=== PATIENT | female | born 1940 | race Caucasian/White ===

== ENCOUNTER → 2016-03-07 | Outpatient (CLI) | payer BC ==
[2016-03-07 14:42] LABS: CHOLESTEROL 124.02 mg/dL (0-200); Direct HDL 45 mg/dL (>40); TRIGLYCERIDES 122 mg/dL (<150)
[2016-03-07 14:45] LABS: ANION GAP 9 (5-19); BLOOD UREA NITROGEN 16 mg/dL (7-20); CALCIUM 9.4 mg/dL (8.4-10.2); CARBON DIOXIDE 30 mmol/L (22-30); CHLORIDE 102 mmol/L (98-107); CREATININE RESULT 1.33 mg/dL (0.52-1.25); GLUCOSE 103 mg/dL (75-110); POTASSIUM 4.3 mmol/L (3.6-5.0)
[2016-03-07 14:53] LABS: DIRECT LDL 59 mg/dL (<100)
== END ==
LOC: OD 13:29
PROVIDERS: ATTEND Internal Medicine Cardiovascular Disease
DX: E78.4 Other hyperlipidemia (principal)
CPT/HCPCS: 36415; 80048; 80061

== ENCOUNTER → 2016-09-09 | Outpatient (CLI) | payer BC ==
[2016-09-09 14:14] LABS: ANION GAP 10 (5-19); BLOOD UREA NITROGEN 19 mg/dL (7-20); CALCIUM 9.2 mg/dL (8.4-10.2); CARBON DIOXIDE 26 mmol/L (22-30); CHLORIDE 105 mmol/L (98-107); CHOLESTEROL 129.42 mg/dL (0-200); CREATININE RESULT 1.23 mg/dL (0.52-1.25); Direct HDL 45 mg/dL (>40); GLUCOSE 114 mg/dL (75-110); POTASSIUM 4.4 mmol/L (3.6-5.0); SODIUM 140.6 mmol/L (137-145); TRIGLYCERIDES 127 mg/dL (<150)
[2016-09-09 14:25] LABS: DIRECT LDL 58 mg/dL (<100)
== END ==
LOC: OD 13:09
PROVIDERS: ATTEND Internal Medicine Cardiovascular Disease
DX: I70.1 Atherosclerosis of renal artery (principal); I25.10 Atherosclerotic heart disease of native coronary artery without angina pectoris
CPT/HCPCS: 36415; 80048; 80061

== ENCOUNTER 2017-01-18 12:50 | Inpatient (IN) | payer MEDICARE ==
[2017-01-18] MEDS ORDERED: HYDROMORPHONE HCL INJ/PF 2 MG/ML AMPULE IV ONE ×2 (13:21→14:56)
--- NOTE | 2017-01-18 13:44 | ER Document Report ---
ED General - General Chief Complaint: Fall Injury Stated Complaint: HIP PAIN Time Seen by Provider: 01/18/17 13:18 Notes: 76-year-old female with multiple chronic medical issues including cardiac on Plavix presents with a fall from standing on the way back from the commode about 2 hours ago resulting in painful right hip, impact on the right side of her body, pain worse with movement and not able to bear weight. She also states that her ankle twisted, this made her fall. She has minimal ankle pain. No numbness or tingling chest pain shortness of breath headache at impact, nausea vomiting or neck pain. Brought in by EMS. Has neurologic symptoms in the left or right lower extremity. TRAVEL OUTSIDE OF THE [place] IN LAST 30 DAYS: No - Related Data Allergies/Adverse Reactions: epinephrine [Epinephrine] Allergy (Verified 05/11/15 18:37) Home Medications: Current Home Medications Aspirin [Aspirin EC] 81 mg PO DAILY 01/18/17 [History] Bupropion HCl [Bupropion Xl] 150 mg PO DAILY 01/18/17 [History] Escitalopram Oxalate [Lexapro] 20 mg PO DAILY 01/18/17 [History] Lisinopril [Prinivil 10 mg Tablet] 10 mg PO QPM 01/18/17 [History] Nifedipine [Nifedipine ER] 30 mg PO QPM 01/18/17 [History] Rosuvastatin Calcium [Crestor 10 mg Tablet] 10 mg PO QHS 01/18/17 [History] Trazodone HCl [Desyrel 50 mg Tablet] 50 mg PO HSP PRN 01/18/17 [History] Ubidecarenone [Coq-10] 100 mg PO DAILY 01/18/17 [History] Past Medical History - Social History Smoking Status: Former Smoker Family History: Reviewed & Not Pertinent - Past Medical History Cardiac Medical History: Reports: Hx Hypercholesterolemia, Hx Hypertension Psychiatric Medical History: Reports: Hx Depression, Hx Post Traumatic Stress Disorder Past Surgical History: Reports: Hx Breast Surgery - left masectomy, Hx Kidney ( Renal Surgery) - renal stent Review of Systems - Review of Systems Notes: REVIEW OF SYSTEMS GEN: Denies fever, chills, weight loss ENT: Denies sore throat, nasal discharge, ear pain EYES: Denies blurry vision, eye pain, discharge CV: Denies chest pain, palpitations, edema RESP: Denies cough, shortness of breath, wheezing GI: Denies abdominal pain, nausea, vomiting, diarrhea MSK: Right hip pain, SKIN: Denies rash, skin lesions LYMPH: Denies swollen glands/lymph nodes NEURO: Denies headache, focal weakness or numbness, dizziness PSYCH: Denies depression, suicidal or homicidal ideation PHYSICAL EXAMINATION General: No acute distress, well-nourished Head: Atraumatic, normocephalic ENT: Mouth normal, oropharynx moist, no exudates or tonsillar enlargement Eyes: Conjunctiva normal, pupils equal, lids normal Neck: No JVD, supple, no guarding CVS: Normal rate, regular rhythm, no murmurs Resp: No resp distress, equal and normal breath sounds bilaterally GI: Nondistended, soft, no tenderness to palpation, no rebound or guarding Ext: Right hip is held in hyper adduction, painful range of motion tenderness in the anterior femur proximally with some ecchymosis. Compartments are soft throughout, no knee or ankle tenderness. T Back: No CVA or midline TTP Skin: No rash, warm Lymphatic: No lymphadeopathy noted Neuro: Awake, alert. Face symmetric. GCS 15. Physical Exam - Vital signs Vitals: Temp Pulse Resp BP Pulse Ox 100.3 F 68 19 196/86 H 93 01/18/17 13:06 01/18/17 13:06 01/18/17 13:06 01/18/17 13:06 01/18/17 13:06 Course - Re-evaluation Re-evalutation: 01/18/17 13:44 Mechanical fall leading to right hip pain differential diagnosis includes contusion versus fracture of hip, less likely pelvis fracture, no evidence of head neck or truncal injury. Pain control, femur and pelvis films will be done. 01/18/17 14:45 X-ray shows right-sided hip fracture. Neurologically intact. Lengthy discussion with patient about admitting here, Dr. Welch has accepted by phone but the patient is not interested in having Dr. Welch perform her operation. She was educated on the patella and the fact that a transfer would result in cost to her for transportation. She and her were frustrated by this. I verified with Dr. Hill, the hospitalist, that if he admitted the patient she would need to be consulted on by Dr. Welch and not have her choice of orthopedists. is calling her primary private doctor to find out more options. In the meantime I ordered CBC, basic metabolic panel chest x-ray and EKG for preoperative workup. 01/18/17 15:27 After speaking with her primary the patient is accepted Dr. Welch to fix her hip. Admitted to Dr. HILL. - Vital Signs Vital signs: Temp Pulse Resp BP Pulse Ox 100.3 F 68 19 196/86 H 93 01/18/17 13:06 01/18/17 13:06 01/18/17 13:06 01/18/17 13:06 01/18/17 13:06 - Laboratory Result Diagrams: 01/18/17 14:47 01/18/17 14:47 Laboratory results interpreted by me: 01/18/17 01/18/17 14:47 14:47 Plt Count 126 L Seg Neuts % (Manual) 92 H Band Neutrophils % 1 L Lymphocytes % (Manual) 1 L Abs Neuts (Manual) 8.9 H Abs Lymphs (Manual) 0.2 L Potassium 3.4 L Chloride 108 H Est GFR (Non-Af Amer) 53 L Glucose 139 H - Diagnostic Test Radiology reviewed: Image reviewed, Reports reviewed - EKG Interpretation by Me EKG shows normal: Sinus rhythm Rate: Normal Rhythm: NSR - No ischemic change Discharge - Discharge Clinical Impression: Fracture of hip, right, closed Qualifiers: Encounter type: initial encounter Qualified Code(s): S72.001A - Fracture of unspecified part of neck of right femur, initial encounter for closed fracture Condition: Good Disposition: ADMITTED INPATIENT Admitting Provider: Hospitalist Unit Admitted: Medical Floor
--- NOTE | 2017-01-18 14:36 | RADIOLOGY REPORT (SQ) ---
EXAM DESCRIPTION: PELVIS AP COMPLETED DATE/TIME: 01/18/2017 2:15 pm REASON FOR STUDY: fall old hi pfx COMPARISON: None. NUMBER OF VIEWS: One view TECHNIQUE: AP Pelvis LIMITATIONS: None. FINDINGS: MINERALIZATION: Normal. HIPS: Suboptimal visualization of the right femoral neck. Cannot exclude underlying fracture. Unrem arkable appearance of the left hip. Mild degenerative changes. PELVIS AND SACRUM: No acute fracture or dislocation. No worrisome bone lesions. PUBIS AND ISCHIUM: No acute fracture. LOWER LUMBAR SPINE: No significant findings as visualized. SOFT TISSUES: No findings. OTHER: No other significant finding. IMPRESSION: SUBOPTIMAL VISUALIZATION OF THE RIGHT FEMORAL NECK. CANNOT EXCLUDE FRACTURE. NO OTHER SIGNIFICANT FINDINGS. TECHNICAL DOCUMENTATION: JOB ID: [id number] [employer]- All Rights Reserved
--- NOTE | 2017-01-18 14:37 | RADIOLOGY REPORT (SQ) ---
EXAM DESCRIPTION: FEMUR RIGHT COMPLETED DATE/TIME: 01/18/2017 2:15 pm REASON FOR STUDY: ttp proox COMPARISON: None. NUMBER OF VIEWS: Two views. TECHNIQUE: Two radiographic images acquired of the right femur to include hip and knee in at least o ne projection. LIMITATIONS: None. FINDINGS: MINERALIZATION: Normal. BONES: Suboptimal visualization of the right femoral neck. Suspect fracture. There is also suggesti on of focal radiolucency and cannot exclude underlying bone lesion. SOFT TISSUES: No obvious swelling or foreign body. OTHER: No other significant finding. IMPRESSION: SUSPECT FRACTURE OF THE RIGHT FEMORAL NECK. AREA OF RADIOLUCENCY COULD BE ARTIFACT VERS US UNDERLYING BONE LESION. TECHNICAL DOCUMENTATION: JOB ID: [id number] [employer]- All Rights Reserved
[2017-01-18 14:55] LABS: HEMOGLOBIN 13.9 g/dL (12.0-15.5); HGB HCT DIFFERENCE 1.7; MEAN CORPUSCULAR HEMOGLOBIN 28.7 pg (27.0-33.4); MEAN CORPUSCULAR HGB CONC 34.7 g/dL (32.0-36.0); MEAN CORPUSCULAR VOLUME 83 fl (80-97); RED BLOOD COUNT 4.85 10^6/uL (3.72-5.28); RED CELL DISTRIBUTION WIDTH 13.5 % (11.5-14.0); WHITE BLOOD COUNT 9.6 10^3/uL (4.0-10.5)
--- NOTE | 2017-01-18 15:12 | RADIOLOGY REPORT (SQ) ---
EXAM DESCRIPTION: CHEST SINGLE VIEW COMPLETED DATE/TIME: 01/18/2017 2:59 pm REASON FOR STUDY: pre-op COMPARISON: 05/15/2015 EXAM PARAMETERS: NUMBER OF VIEWS: One view. TECHNIQUE: Single frontal radiographic view of the chest acquired. RADIATION DOSE: NA LIMITATIONS: None. FINDINGS: LUNGS AND PLEURA: No opacities, masses or pneumothorax. No pleural effusion. MEDIASTINUM AND HILAR STRUCTURES: No masses. Contour normal. HEART AND VASCULAR STRUCTURES: Heart normal in size. Normal vasculature. BONES: No acute findings. HARDWARE: None in the chest. OTHER: No other significant finding. IMPRESSION: NO ACUTE RADIOGRAPHIC FINDING IN THE CHEST. TECHNICAL DOCUMENTATION: JOB ID: [id number] [employer]- All Rights Reserved
[2017-01-18 15:17] LABS: ANION GAP 6 (5-19); BLOOD UREA NITROGEN 13 mg/dL (7-20); CARBON DIOXIDE 27 mmol/L (22-30); CHLORIDE 108 mmol/L (98-107); CREATININE RESULT 1.01 mg/dL (0.52-1.25); GLUCOSE 139 mg/dL (75-110); POTASSIUM 3.4 mmol/L (3.6-5.0); SODIUM 140.8 mmol/L (137-145)
[2017-01-18 15:23] LABS: BAND NEUTROPHILS % (MANUAL) 1 % (3-5); BASOPHILS % (MANUAL) 0 % (0-2); EOSINOPHILS % (MANUAL) 0 % (0-6); LYMPHOCYTES % (MANUAL) 1 % (13-45); TOTAL CELLS COUNTED 100
[2017-01-18 15:24] LABS: RBC MORPHOLOGY COMMENT NORMO-CYTIC/CHROMIC
[2017-01-18] MEDS ORDERED: DEXTROSE 50%-WATER 25 GM/50 ML DISP.SYRIN IV PRN ×2 (16:32)
[2017-01-18] MEDS ORDERED: DEXTROSE 40% GEL 15 GM TUBE PO PRN ×2 (16:32)
[2017-01-18] MEDS ORDERED: IPRATROPIUM/ALBUTEROL 0.5-2.5 MG/3 ML AMPUL NEB PRN (16:32)
[2017-01-18] MEDS ORDERED: ACETAMINOPHEN 325 MG TABLET PO PRN (16:32)
[2017-01-18] MEDS ORDERED: ONDANSETRON 4 MG TAB.RAPDIS PO PRN (16:32)
[2017-01-18] MEDS ORDERED: ONDANSETRON HCL INJ/PF 4 MG/2 ML SDV IV PRN (16:32)
[2017-01-18] MEDS ORDERED: NORMAL SALINE 1000 ML 1,000 ML IV PRN (16:32)
[2017-01-18] MEDS ORDERED: GLUCAGON,HUMAN RECOMB 1 MG INJ SUBCUT PRN (16:32)
[2017-01-18] MEDS ORDERED: TRAZODONE HCL 50 MG TABLET PO PRN (16:41)
[2017-01-18] MEDS ORDERED: MORPHINE SULFATE 10 MG/ML INJ IV PRN (16:42)
--- NOTE | 2017-01-18 16:49 | PDOC H&P ---
History of Present Illness Admission Date/PCP: 01/18/17 15:32 EDILBERTO REED MD Patient complains of: Right hip pain History of Present Illness: HENRRY HITCHCOCK is a 76 year old female who has a history of coronary disease who had a slip and fall in her house yesterday and fell and hit her right side. Patient had complaints of right hip pain at that time got herself up and walked to bed and woke up this morning with worsening pain. She was found to have a small fracture in her right femoral neck. The patient reports that she did not have any loss of consciousness. Denied having any chest pain or palpitations. She did not have any head trauma. She had no loss of consciousness. She reports that the floor was somewhat wet and slick where she slipped and fell. The patient denies any focal weakness or paresthesias. Past Medical History Cardiac Medical History: Reports: Coronary Artery Disease - History of RCA stent , Hyperlipidema, Hypertension, Peripheral Vascular Disease - History of renal artery stent placement Pulmonary Medical History: Reports: None EENT Medical History: Reports: None Neurological Medical History: Reports: None Endocrine Medical History: Reports: None Renal/ Medical History: Reports: Other - History of renal artery stenosis requiring stent placement Malignancy Medical History: Reports: Breast Cancer GI Medical History: Reports: None Skin Medical History: Reports: None Psychiatric Medical History: Reports: Depression, Post Traumatic Stress Disorder Traumatic Medical History: Reports: None Hematology: Reports: None Infectious Medical History: Reports: None Past Surgical History Past Surgical History: Reports: Cardiac Catheterization - RCA stent placement, Hysterectomy, Mastectomy - Left mastectomy for breast cancer Social History Information Source: Patient Lives with: Spouse/Significant other Smoking Status: Never Smoker Frequency of Alcohol Use: None Hx Recreational Drug Use: No Drugs: None Hx Prescription Drug Abuse: No - Advance Directive Resuscitation Status: Full Code Surrogate healthcare decision maker:: Family History Family History: Mother at age 90 from complications of sepsis. Father at age 70 from a cerebral aneurysm. Daughter had an aneurysm and from that also. Parental Family History Reviewed: Yes Children Family History Reviewed: Yes Sibling(s) Family History Reviewed.: No Medication/Allergy Home Medications: Aspirin [Aspirin EC] 81 mg PO DAILY 01/18/17 Bupropion HCl [Bupropion Xl] 150 mg PO DAILY 01/18/17 Escitalopram Oxalate [Lexapro] 20 mg PO DAILY 01/18/17 Lisinopril [Prinivil 10 mg Tablet] 10 mg PO QPM 01/18/17 Nifedipine [Nifedipine ER] 30 mg PO QPM 01/18/17 Rosuvastatin Calcium [Crestor 10 mg Tablet] 10 mg PO QHS 01/18/17 Trazodone HCl [Desyrel 50 mg Tablet] 50 mg PO HSP PRN 01/18/17 Ubidecarenone [Coq-10] 100 mg PO DAILY 01/18/17 Allergies/Adverse Reactions: epinephrine [Epinephrine] Allergy (Verified 05/11/15 18:37) Review of Systems Constitutional: ABSENT: chills, fever(s), headache(s), weight gain, weight loss Eyes: ABSENT: visual disturbances Ears: ABSENT: hearing changes Cardiovascular: ABSENT: chest pain, dyspnea on exertion, edema, orthropnea, palpitations Respiratory: ABSENT: cough, hemoptysis Gastrointestinal: ABSENT: abdominal pain, constipation, diarrhea, hematemesis, hematochezia, nausea, vomiting Genitourinary: ABSENT: dysuria, hematuria Musculoskeletal: PRESENT: other - Right hip pain after her fall. Integumentary: ABSENT: rash, wounds Neurological: ABSENT: abnormal gait, abnormal speech, confusion, dizziness, focal weakness, syncope Psychiatric: ABSENT: anxiety, depression Endocrine: ABSENT: cold intolerance, heat intolerance, polydipsia, polyuria Hematologic/Lymphatic: ABSENT: easy bleeding, easy bruising Physical Exam Vital Signs: Temp Pulse Resp BP Pulse Ox 100.3 F 68 19 196/86 H 93 01/18/17 13:06 01/18/17 13:06 01/18/17 13:06 01/18/17 13:06 01/18/17 13:06 General appearance: PRESENT: no acute distress, obese Head exam: PRESENT: atraumatic, normocephalic Eye exam: PRESENT: conjunctiva pink, EOMI, PERRLA. ABSENT: scleral icterus Ear exam: PRESENT: normal external ear exam Mouth exam: PRESENT: moist, tongue midline Neck exam: ABSENT: carotid bruit, JVD, lymphadenopathy, thyromegaly Respiratory exam: PRESENT: clear to auscultation gregorio. ABSENT: rales, rhonchi, wheezes Cardiovascular exam: PRESENT: RRR. ABSENT: diastolic murmur, rubs, systolic murmur Pulses: PRESENT: normal dorsalis pedis pul Vascular exam: PRESENT: normal capillary refill GI/Abdominal exam: PRESENT: normal bowel sounds, soft. ABSENT: distended, guarding, mass, organolmegaly, rebound, tenderness Rectal exam: PRESENT: deferred Extremities exam: PRESENT: other - Right hip is externally rotated. ABSENT: calf tenderness, clubbing, pedal edema Neurological exam: PRESENT: alert, awake, oriented to person, oriented to place , oriented to time, oriented to situation, CN II-XII grossly intact. ABSENT: motor sensory deficit Psychiatric exam: PRESENT: appropriate affect Skin exam: PRESENT: dry, intact, warm. ABSENT: cyanosis, rash Results Impressions: Pelvis X-Ray 01/18/17 13:18 IMPRESSION: SUBOPTIMAL VISUALIZATION OF THE RIGHT FEMORAL NECK. CANNOT EXCLUDE FRACTURE. NO OTHER SIGNIFICANT FINDINGS. Femur X-Ray 01/18/17 13:21 IMPRESSION: SUSPECT FRACTURE OF THE RIGHT FEMORAL NECK. AREA OF RADIOLUCENCY COULD BE ARTIFACT VERSUS UNDERLYING BONE LESION. Chest X-Ray 01/18/17 14:19 IMPRESSION: NO ACUTE RADIOGRAPHIC FINDING IN THE CHEST. Assessment & Plan - Diagnosis (1) Fracture of hip, right, closed Qualifiers: Encounter type: initial encounter Qualified Code(s): S72.001A - Fracture of unspecified part of neck of right femur, initial encounter for closed fracture Is this a current diagnosis for this admission?: Yes Plan: Patient is at an acceptable risk for surgical repair if that is deemed appropriate by orthopedic surgery. Will consult Dr. Welch for his opinion. She has been on Plavix and aspirin which we will hold until postoperative. (2) Coronary artery disease Is this a current diagnosis for this admission?: Yes Plan: Patient has a history of coronary disease with a stent placed in her right coronary artery years ago. The patient has been doing well has been able to ambulate without any type of chest pain or shortness of breath prior to her fall. She is at an acceptable risk for surgical repair of her hip fracture. (3) Hypertension Is this a current diagnosis for this admission?: Yes Plan: We will continue with the nifedipine and lisinopril. (4) Hyperlipidemia Is this a current diagnosis for this admission?: Yes Plan: Continue with Crestor. (5) Posttraumatic stress disorder Is this a current diagnosis for this admission?: Yes Plan: Continue with Lexapro and Wellbutrin. (6) Breast cancer Is this a current diagnosis for this admission?: Yes Plan: Patient had breast cancer over 15 years ago. (7) Peripheral vascular disease Is this a current diagnosis for this admission?: Yes Plan: Patient has a history of having a stent placed in her renal artery. - Time Time Spent: 50 to 70 Minutes - Inpatient Certification Medical Necessity: Need for Pain Control, Need for Surgery
--- NOTE | 2017-01-18 16:59 | PDOC CONSULTATION ---
Consultation Consult Date: 01/18/17 Consult reason:: Right hip fracture History of Present Illness Admission Date/PCP: 01/18/17 15:32 EDILBERTO REED MD History of Present Illness: The patient is a 76-year-old white female who fell injured her right hip was able to walk to bed but then had difficulty getting up out of bed later. She presented to emergency room with a displaced right femoral neck fracture. Orthopedics is consulted for fracture management. Past Medical History Cardiac Medical History: Reports: Coronary Artery Disease - History of RCA stent , Hyperlipidema, Hypertension, Peripheral Vascular Disease - History of renal artery stent placement Pulmonary Medical History: Reports: None EENT Medical History: Reports: None Neurological Medical History: Reports: None Endocrine Medical History: Reports: None Renal/ Medical History: Reports: Other - History of renal artery stenosis requiring stent placement Malignancy Medical History: Reports: Breast Cancer GI Medical History: Reports: None Skin Medical History: Reports: None Psychiatric Medical History: Reports: Depression, Post Traumatic Stress Disorder Traumatic Medical History: Reports: None Hematology: Reports: None Infectious Medical History: Reports: None Past Surgical History Past Surgical History: Reports: Cardiac Catheterization - RCA stent placement, Hysterectomy, Mastectomy - Left mastectomy for breast cancer Social History Lives with: Spouse/Significant other Smoking Status: Never Smoker Frequency of Alcohol Use: None Hx Recreational Drug Use: No Drugs: None Hx Prescription Drug Abuse: No - Advance Directive Resuscitation Status: Full Code Family History Family History: Reviewed & Not Pertinent Parental Family History Reviewed: No Children Family History Reviewed: No Sibling(s) Family History Reviewed.: No Medication/Allergy Home Medications: Aspirin [Aspirin EC] 81 mg PO DAILY 01/18/17 Bupropion HCl [Bupropion Xl] 150 mg PO DAILY 01/18/17 Escitalopram Oxalate [Lexapro] 20 mg PO DAILY 01/18/17 Lisinopril [Prinivil 10 mg Tablet] 10 mg PO QPM 01/18/17 Nifedipine [Nifedipine ER] 30 mg PO QPM 01/18/17 Rosuvastatin Calcium [Crestor 10 mg Tablet] 10 mg PO QHS 01/18/17 Trazodone HCl [Desyrel 50 mg Tablet] 50 mg PO HSP PRN 01/18/17 Ubidecarenone [Coq-10] 100 mg PO DAILY 01/18/17 Allergies/Adverse Reactions: epinephrine [Epinephrine] Allergy (Verified 05/11/15 18:37) Review of Systems All systems: as per PMH Physical Exam Vital Signs: Temp Pulse Resp BP Pulse Ox 37.9 C 68 19 196/86 H 93 01/18/17 13:06 01/18/17 13:06 01/18/17 13:06 01/18/17 13:06 01/18/17 13:06 Intake & Output 01/17/17 01/18/17 01/19/17 06:59 06:59 06:59 Weight 78.7 kg General appearance: PRESENT: no acute distress Head exam: PRESENT: normocephalic Respiratory exam: PRESENT: unlabored Cardiovascular exam: PRESENT: RRR Pulses: PRESENT: +1 pedal pulses bilateral Vascular exam: PRESENT: normal capillary refill GI/Abdominal exam: PRESENT: soft Rectal exam: PRESENT: deferred Extremities exam: PRESENT: other - Right lower extremity shortened and externally rotated. Distal neurovascular examination is intact. Neurological exam: PRESENT: alert, awake, oriented to person, oriented to place , oriented to time, oriented to situation. ABSENT: motor sensory deficit Psychiatric exam: PRESENT: appropriate affect, normal mood. ABSENT: homicidal ideation, suicidal ideation Skin exam: PRESENT: dry, intact, warm. ABSENT: cyanosis, rash Results Impressions: Pelvis X-Ray 01/18/17 13:18 IMPRESSION: SUBOPTIMAL VISUALIZATION OF THE RIGHT FEMORAL NECK. CANNOT EXCLUDE FRACTURE. NO OTHER SIGNIFICANT FINDINGS. Femur X-Ray 01/18/17 13:21 IMPRESSION: SUSPECT FRACTURE OF THE RIGHT FEMORAL NECK. AREA OF RADIOLUCENCY COULD BE ARTIFACT VERSUS UNDERLYING BONE LESION. Chest X-Ray 01/18/17 14:19 IMPRESSION: NO ACUTE RADIOGRAPHIC FINDING IN THE CHEST. Status: Imported from PACS Assessment & Plan - Diagnosis (1) Fracture of femoral neck, right, closed Is this a current diagnosis for this admission?: Yes Plan: 76-year-old with a displaced right femoral neck fracture would be best served with a right proximal femoral hemiarthroplasty. This is a procedure that will take about 30 minutes and will incur approximately 100 cc of blood loss. Patient will be ambulatory and weightbearing as tolerated basis postoperatively. The risks and benefits of the surgery have been discussed with the patient. They include but are not limited to infection, bleeding, neurovascular injury, blood clots, leg length inequality, dislocation. - Time Time Spent: 50 to 70 Minutes Anticipated discharge: Home with Homehealth Within: within 48 hours
[2017-01-18] MEDS ORDERED: NIFEDIPINE 30 MG TAB.ER.24 PO SCH (18:00)
[2017-01-18] MEDS ORDERED: LISINOPRIL 10 MG TABLET PO SCH (18:00)
--- NOTE | 2017-01-18 20:28 | EKG REPORT ---
SEVERITY:- ABNORMAL ECG - SINUS RHYTHM PROBABLE LVH WITH SECONDARY REPOL ABNRM : Confirmed by: Mala Chun 18-Jan-2017 20:28:13
[2017-01-18] MEDS: OXYCODONE-ACETAMINOPHEN 5-325 MG TABLET PO PRN (21:38)
[2017-01-18] MEDS: ATORVASTATIN CALCIUM 20 MG TABLET PO SCH (21:38)
[2017-01-18] MEDS: BUPROPION HCL 75 MG TABLET PO SCH (21:38)
[2017-01-18] MEDS ORDERED: FAMOTIDINE 20 MG TABLET PO SCH (22:00)
[2017-01-18] MEDS ORDERED: ATORVASTATIN CALCIUM 10 MG TABLET PO SCH (22:00)
[2017-01-19] MEDS: OXYCODONE-ACETAMINOPHEN 5-325 MG TABLET PO PRN (03:11)
[2017-01-19] MEDS ORDERED: TRANEXAMIC ACID INJ/PF 1,000 MG/10 ML SDV IV PRN ×2 (05:00→10:00)
[2017-01-19] MEDS ORDERED: VANCOMYCIN HCL 1,000 MG in DEXTROSE 5%-WATER 250 ML IV SCH (05:00)
[2017-01-19] MEDS ORDERED: THROMBIN (BOVINE) 5000 UNIT EPITAXIS KIT ONE (06:28)
[2017-01-19] MEDS ORDERED: BUPIVACAINE INJ/PF LIPOSOME/PF 266 MG/20 ML SDV ONE (06:28)
[2017-01-19] MEDS ORDERED: THROMBIN (BOVINE) TOPICAL 20000 UNIT VIAL ONE (06:28)
[2017-01-19 06:34] LABS: ABSOLUTE EOSINOPHILS # (AUTO) 0.1 10^3/uL (0.0-0.6); ABSOLUTE LYMPHOCYTES (AUTO) 0.9 10^3/uL (0.5-4.7); ABSOLUTE MONOCYTES (AUTO) 0.7 10^3/uL (0.1-1.4); ABSOLUTE NEUT (AUTO) 6.4 10^3/uL (1.7-8.2); BASOPHILS % (AUTO) 0.5 % (0-2); EOSINOPHILS % (AUTO) 1.4 % (0-6); HEMATOCRIT 36.7 % (36.0-47.0); HEMOGLOBIN 12.7 g/dL (12.0-15.5); HGB HCT DIFFERENCE 1.4; LYMPHOCYTES % (AUTO) 10.9 % (13-45); MEAN CORPUSCULAR HEMOGLOBIN 28.9 pg (27.0-33.4); MEAN CORPUSCULAR HGB CONC 34.5 g/dL (32.0-36.0); MEAN CORPUSCULAR VOLUME 84 fl (80-97); MONOCYTES % (AUTO) 8.8 % (3-13); RED BLOOD COUNT 4.39 10^6/uL (3.72-5.28); RED CELL DISTRIBUTION WIDTH 13.5 % (11.5-14.0); SEGMENTED NEUTROPHILS % (AUTO) 78.4 % (42-78); WHITE BLOOD COUNT 8.2 10^3/uL (4.0-10.5)
[2017-01-19] MEDS ORDERED: TRANEXAMIC ACID INJ/PF 1,000 MG/10 ML SDV IV ONE ×2 (06:37→09:53)
[2017-01-19] MEDS ORDERED: VANCOMYCIN HCL INJ 1000 MG VIAL ONE (06:37)
[2017-01-19] MEDS ORDERED: PROPOFOL INJ 200 MG/20 ML VIAL IV ONE (06:44)
[2017-01-19] MEDS ORDERED: MIDAZOLAM 2 MG/2 ML INJ ONE (06:44)
[2017-01-19] MEDS ORDERED: FENTANYL CITRATE INJ/PF 100 MCG/2 ML AMPUL ONE (06:44)
[2017-01-19] MEDS ORDERED: ACETAMINOPHEN 100 ML IV ONE (06:45)
[2017-01-19] MEDS ORDERED: KETOROLAC TROMETHAMINE 60 MG/2 ML SDV ONE (06:45)
[2017-01-19 06:55] LABS: ANION GAP 11 (5-19); BLOOD UREA NITROGEN 12 mg/dL (7-20); CALCIUM 8.8 mg/dL (8.4-10.2); CARBON DIOXIDE 23 mmol/L (22-30); CHLORIDE 108 mmol/L (98-107); CREATININE RESULT 0.83 mg/dL (0.52-1.25); GLUCOSE 108 mg/dL (75-110); POTASSIUM 3.1 mmol/L (3.6-5.0); SODIUM 141.9 mmol/L (137-145)
[2017-01-19] MEDS ORDERED: HYDROMORPHONE HCL INJ/PF 2 MG/ML AMPULE ONE (07:10)
[2017-01-19] MEDS ORDERED: ONDANSETRON HCL INJ/PF 4 MG/2 ML SDV IV PRN ×2 (07:53→07:57)
[2017-01-19] MEDS ORDERED: MEPERIDINE HCL/PF INJ 25 MG/1 ML DISP.SYRIN IV PRN (07:53)
[2017-01-19] MEDS ORDERED: DIPHENHYDRAMINE HCL 50 MG/ML VIAL IV PRN ×2 (07:53→07:57)
[2017-01-19] MEDS ORDERED: PROMETHAZINE HCL INJ 25 MG/1 ML VIAL IV PRN (07:53)
[2017-01-19] MEDS ORDERED: FENTANYL CITRATE INJ/PF 100 MCG/2 ML AMPUL IV PRN ×3 (07:53)
[2017-01-19] MEDS ORDERED: MORPHINE SULFATE 10 MG/ML INJ IV PRN ×4 (07:53→07:57)
[2017-01-19] MEDS ORDERED: MAG HYDROX/AL HYDROX/SIMETH SUSP 30 ML UDCUP PO PRN (07:57)
[2017-01-19] MEDS ORDERED: ONDANSETRON 4 MG TAB.RAPDIS PO PRN (07:57)
[2017-01-19] MEDS ORDERED: OXYCODONE HCL IR 5 MG TABLET PO PRN (07:57)
[2017-01-19] MEDS ORDERED: RINGERS SOLUTION,LACTATED 1,000 ML IV PRN ×2 (07:57)
[2017-01-19] MEDS ORDERED: ZOLPIDEM TARTRATE 5 MG TABLET PO PRN (07:57)
[2017-01-19] MEDS ORDERED: CARVEDILOL 12.5 MG TABLET PO PRN (07:57)
[2017-01-19] MEDS ORDERED: MORPHINE SULFATE 10 MG/ML INJ IM PRN (07:57)
--- NOTE | 2017-01-19 07:57 | Operative Report ---
Operative Report DATE OF SURGERY: 01/19/17 PREOPERATIVE DIAGNOSIS: Right femoral neck fracture OPERATION: Right proximal femoral hemiarthroplasty SURGEON: STUART MCKEON ANESTHESIA: GA TISSUE REMOVED OR ALTERED: Femoral head to pathology ESTIMATED BLOOD LOSS: 100 PROCEDURE: With the patient in a left lateral decubitus position the right lower extremity hindquarter prepped and draped in a sterile fashion. A curvilinear incision made over the greater trochanter a posterior approach the hip was taken. The femur was retracted anteriorly and underlying femoral neck and head are retrieved using a corkscrew. The femoral head was measured and noted to be 46 millimeters. Attention is now turned to the femur. Access is gained to the femoral canal using a box osteotome to the piriformis fossa. The femur is then prepared using a series of tapered broaches until a number 6 broach is seated. A trial reduction was now performed using a 46 head and standard neck. Leg length was restored and there is excellent anterior posterior stability. A decision was made to proceed with this construct. All trial implants were removed. The final number 6 femoral stem is impacted into the canal. The standard neck is impacted onto the trunnion. Final unipolar head 46 millimeters is impacted onto the neck. The hip was reduced. The wound is copiously irrigated with pulsed lavage. A subsequent closed in layers using Vicryl and albino. A sterile dressing is applied. The patient was returned to the recovery room in satisfactory condition.
[2017-01-19] MEDS ORDERED: POTASSI CL 20 MEQ/50 ML RIDER 20 MEQ/50 ML RTUPB IV ONE (09:15)
[2017-01-19] MEDS: FLUMAZENIL INJ 0.5 MG/5 ML VIAL ONE ×2 (09:27→09:43)
--- NOTE | 2017-01-19 09:31 | RADIOLOGY REPORT (SQ) ---
EXAM DESCRIPTION: PELVIS AP COMPLETED DATE/TIME: 01/19/2017 9:23 am REASON FOR STUDY: Post Op Long Cassette in PACU COMPARISON: 01/18/2017. NUMBER OF VIEWS: One view TECHNIQUE: Digital radiographic images of the pelvis post-procedure LIMITATIONS: None. FINDINGS: BONES: No worrisome or unexpected findings post-procedure. DEVICE: Bi-polar prothesis. Device appears in appropriate location. SOFT TISSUES: No worrisome findings. Expected postoperative soft tissue changes. IMPRESSION: SATISFACTORY POSTOPERATIVE PELVIS. TECHNICAL DOCUMENTATION: JOB ID: [id number] [employer]- All Rights Reserved
[2017-01-19] MEDS ORDERED: (PENDING PHARMACY ID) (Bupropion Hcl [Bupropion Xl] 150 MG) PO SCH (10:00)
[2017-01-19] MEDS ORDERED: (PENDING PHARMACY ID) (Ubidecarenone [Coq-10] 100 MG) PO SCH (10:00)
[2017-01-19] MEDS: NALOXONE HCL INJ/PF 0.4 MG/1 ML SDV ONE ×2 (10:06→10:22)
[2017-01-19] MEDS: OXYCODONE HCL SR 10 MG TABLET PO SCH (13:59)
[2017-01-19] MEDS: ASPIRIN 81 MG TABLET, ENT COATED PO SCH (13:59)
[2017-01-19] MEDS ORDERED: SUCCINYLCHOLINE CHLORIDE INJ 200 MG/10 ML VIAL ONE (14:50)
[2017-01-19] MEDS: PRENATAL VITAMIN W DHA CAPSULE PO SCH (14:50)
[2017-01-19] MEDS: BUPROPION HCL 75 MG TABLET PO SCH (14:51)
[2017-01-19] MEDS: SENNOSIDES/DOCUSATE 8.6-50 MG 1 EACH TABLET PO SCH ×2 (14:51→18:59)
[2017-01-19] MEDS: ESCITALOPRAM OXALATE 10 MG TABLET PO SCH (15:09)
--- NOTE | 2017-01-19 17:17 | PDOC PROGRESS REPORT ---
Subjective Progress Note for:: 01/19/17 Subjective:: Patient reports that she is doing well with minimal pain after surgery. Reason For Visit: RIGHT FEMORAL NECK FRACTURE Physical Exam Vital Signs: Temp Pulse Resp BP Pulse Ox 97.8 F 67 20 119/60 94 01/19/17 14:10 01/19/17 16:34 01/19/17 16:34 01/19/17 14:10 01/19/17 16:34 Intake & Output 01/18/17 01/19/17 01/20/17 06:59 06:59 06:59 Intake Total 1735 2100 Output Total 1375 1300 Balance 360 800 Weight 77.8 kg General appearance: PRESENT: no acute distress Eye exam: PRESENT: conjunctiva pink. ABSENT: scleral icterus Mouth exam: PRESENT: moist, tongue midline Neck exam: ABSENT: JVD Respiratory exam: PRESENT: clear to auscultation gregorio. ABSENT: rales, rhonchi, wheezes Cardiovascular exam: PRESENT: RRR. ABSENT: diastolic murmur, rubs, systolic murmur GI/Abdominal exam: PRESENT: normal bowel sounds, soft. ABSENT: distended, guarding, mass, organolmegaly, rebound, tenderness Extremities exam: ABSENT: calf tenderness, clubbing, pedal edema Neurological exam: PRESENT: alert, awake, oriented to person, oriented to place , oriented to time, oriented to situation, CN II-XII grossly intact. ABSENT: motor sensory deficit Psychiatric exam: PRESENT: appropriate affect Skin exam: PRESENT: dry, intact, warm. ABSENT: cyanosis, rash Results Laboratory Results: 01/19/17 05:45 01/19/17 05:45 01/19/17 01/19/17 05:45 05:45 WBC 8.2 RBC 4.39 Hgb 12.7 Hct 36.7 MCV 84 MCH 28.9 MCHC 34.5 RDW 13.5 Plt Count 125 L Seg Neutrophils % 78.4 H Lymphocytes % 10.9 L Monocytes % 8.8 Eosinophils % 1.4 Basophils % 0.5 Absolute Neutrophils 6.4 Absolute Lymphocytes 0.9 Absolute Monocytes 0.7 Absolute Eosinophils 0.1 Absolute Basophils 0.0 Sodium 141.9 Potassium 3.1 L Chloride 108 H Carbon Dioxide 23 Anion Gap 11 BUN 12 Creatinine 0.83 Est GFR ( Amer) > 60 Est GFR (Non-Af Amer) > 60 Glucose 108 Calcium 8.8 Impressions: Femur X-Ray 01/18/17 13:21 IMPRESSION: SUSPECT FRACTURE OF THE RIGHT FEMORAL NECK. AREA OF RADIOLUCENCY COULD BE ARTIFACT VERSUS UNDERLYING BONE LESION. Chest X-Ray 01/18/17 14:19 IMPRESSION: NO ACUTE RADIOGRAPHIC FINDING IN THE CHEST. Pelvis X-Ray 01/19/17 07:59 IMPRESSION: SATISFACTORY POSTOPERATIVE PELVIS. Assessment & Plan - Diagnosis (1) Fracture of hip, right, closed Qualifiers: Encounter type: initial encounter Qualified Code(s): S72.001A - Fracture of unspecified part of neck of right femur, initial encounter for closed fracture Is this a current diagnosis for this admission?: Yes Plan: She is doing well postoperatively. Will start physical therapy. (2) Coronary artery disease Is this a current diagnosis for this admission?: Yes Plan: We will restart the aspirin and Plavix tomorrow morning. (3) Hypertension Is this a current diagnosis for this admission?: Yes Plan: We will continue with the nifedipine and lisinopril. (4) Hyperlipidemia Is this a current diagnosis for this admission?: Yes Plan: Continue with Crestor. (5) Posttraumatic stress disorder Is this a current diagnosis for this admission?: Yes Plan: Continue with Lexapro and Wellbutrin. (6) Breast cancer Is this a current diagnosis for this admission?: Yes (7) Peripheral vascular disease Is this a current diagnosis for this admission?: Yes Plan: Patient has a history of having a stent placed in her renal artery. - Time Time Spent with patient: 15-24 minutes - Inpatient Certification Medical Necessity: Need Close Monitoring Due to Risk of Patient Decompensation, Need for Pain Control
[2017-01-19] MEDS: ACETAMINOPHEN 100 ML IV SCH (18:29)
[2017-01-19] MEDS ORDERED: VANCOMYCIN HCL 1,000 MG in DEXTROSE 5%-WATER 250 ML IV ONE (20:00)
[2017-01-19] MEDS: NIFEDIPINE 30 MG TAB.ER.24 PO SCH (22:58)
[2017-01-19] MEDS: LISINOPRIL 10 MG TABLET PO SCH (22:58)
[2017-01-19] MEDS: CARVEDILOL 12.5 MG TABLET PO SCH (22:58)
[2017-01-20] MEDS: ATORVASTATIN CALCIUM 20 MG TABLET PO SCH ×2 (00:04→21:32)
[2017-01-20] MEDS: BUPROPION HCL 75 MG TABLET PO SCH ×3 (00:04→21:32)
[2017-01-20] MEDS: ACETAMINOPHEN 100 ML IV SCH ×4 (00:04→21:33)
[2017-01-20] MEDS: OXYCODONE HCL SR 10 MG TABLET PO SCH ×3 (03:46→21:32)
[2017-01-20 06:07] LABS: HEMATOCRIT 31.2 % (36.0-47.0); HEMOGLOBIN 10.7 g/dL (12.0-15.5); HGB HCT DIFFERENCE 0.9; MEAN CORPUSCULAR HEMOGLOBIN 28.5 pg (27.0-33.4); MEAN CORPUSCULAR HGB CONC 34.4 g/dL (32.0-36.0); MEAN CORPUSCULAR VOLUME 83 fl (80-97); RED BLOOD COUNT 3.76 10^6/uL (3.72-5.28); RED CELL DISTRIBUTION WIDTH 13.8 % (11.5-14.0); WHITE BLOOD COUNT 7.1 10^3/uL (4.0-10.5)
[2017-01-20 06:27] LABS: ANION GAP 9 (5-19); BLOOD UREA NITROGEN 12 mg/dL (7-20); CALCIUM 8.3 mg/dL (8.4-10.2); CARBON DIOXIDE 26 mmol/L (22-30); CHLORIDE 107 mmol/L (98-107); CREATININE RESULT 0.89 mg/dL (0.52-1.25); GLUCOSE 102 mg/dL (75-110); POTASSIUM 3.1 mmol/L (3.6-5.0); SODIUM 141.6 mmol/L (137-145)
[2017-01-20] MEDS: LANSOPRAZOLE 30 MG TAB.RAP.DR PO SCH (07:06)
--- NOTE | 2017-01-20 07:47 | PDOC PROGRESS REPORT ---
Subjective Progress Note for:: 01/20/17 Subjective:: I feel like I have been hit by a truck Reason For Visit: RIGHT FEMORAL NECK FRACTURE Physical Exam Vital Signs: Temp Pulse Resp BP Pulse Ox 36.9 C 80 16 160/62 H 93 01/20/17 04:00 01/20/17 04:00 01/20/17 04:00 01/20/17 04:00 01/20/17 04:00 Intake & Output 01/19/17 01/20/17 01/21/17 06:59 06:59 06:59 Intake Total 1735 2700 Output Total 1375 1700 Balance 360 1000 Weight 77.8 kg 82.8 kg General appearance: PRESENT: no acute distress Head exam: PRESENT: normocephalic Respiratory exam: PRESENT: unlabored Cardiovascular exam: PRESENT: RRR Pulses: PRESENT: +1 pedal pulses bilateral Vascular exam: PRESENT: normal capillary refill GI/Abdominal exam: PRESENT: soft Rectal exam: PRESENT: deferred Extremities exam: PRESENT: other - Right hip dressing clean dry and intact. Leg lengths are equal. Distal neurovascular examination is intact. Neurological exam: PRESENT: alert, awake, oriented to person, oriented to place , oriented to time, oriented to situation. ABSENT: motor sensory deficit Psychiatric exam: PRESENT: appropriate affect, normal mood. ABSENT: homicidal ideation, suicidal ideation Skin exam: PRESENT: dry, intact, warm. ABSENT: cyanosis, rash Results Laboratory Results: 01/20/17 05:31 01/20/17 05:31 01/20/17 01/20/17 05:31 05:31 WBC 7.1 RBC 3.76 Hgb 10.7 L Hct 31.2 L MCV 83 MCH 28.5 MCHC 34.4 RDW 13.8 Plt Count 105 L Sodium 141.6 Potassium 3.1 L Chloride 107 Carbon Dioxide 26 Anion Gap 9 BUN 12 Creatinine 0.89 Est GFR ( Amer) > 60 Est GFR (Non-Af Amer) > 60 Glucose 102 Calcium 8.3 L Impressions: Femur X-Ray 01/18/17 13:21 IMPRESSION: SUSPECT FRACTURE OF THE RIGHT FEMORAL NECK. AREA OF RADIOLUCENCY COULD BE ARTIFACT VERSUS UNDERLYING BONE LESION. Chest X-Ray 01/18/17 14:19 IMPRESSION: NO ACUTE RADIOGRAPHIC FINDING IN THE CHEST. Pelvis X-Ray 01/19/17 07:59 IMPRESSION: SATISFACTORY POSTOPERATIVE PELVIS. Status: Imported from PACS Assessment & Plan - Diagnosis (1) Fracture of femoral neck, right, closed Is this a current diagnosis for this admission?: Yes Plan: 76-year-old white female postop day 2 from right hemiarthroplasty for femoral neck fracture. Overall the patient's clinical course has been stable. She is relatively sensitive to narcotic analgesics. She is made limited progress with physical therapy. Anticipate [facility] facility placement when bed is available. - Time Time Spent with patient: 15-24 minutes Anticipated discharge: SNF Within: when bed available
[2017-01-20] MEDS: SENNOSIDES/DOCUSATE 8.6-50 MG 1 EACH TABLET PO SCH ×2 (10:45→17:35)
[2017-01-20] MEDS: ASPIRIN 81 MG TABLET, ENT COATED PO SCH (10:45)
[2017-01-20] MEDS: ESCITALOPRAM OXALATE 10 MG TABLET PO SCH (10:46)
[2017-01-20] MEDS: PRENATAL VITAMIN W DHA CAPSULE PO SCH (10:46)
--- NOTE | 2017-01-20 13:36 | PDOC PROGRESS REPORT ---
Subjective Progress Note for:: 01/20/17 Subjective:: Patient reports that she is doing well with minimal pain after surgery. Reason For Visit: RIGHT FEMORAL NECK FRACTURE Physical Exam Vital Signs: Temp Pulse Resp BP Pulse Ox 98.4 F 69 18 145/64 H 94 01/20/17 08:18 01/20/17 10:13 01/20/17 10:13 01/20/17 08:18 01/20/17 10:13 Intake & Output 01/19/17 01/20/17 01/21/17 06:59 06:59 06:59 Intake Total 1735 3075 Output Total 1375 1700 Balance 360 1375 Weight 77.8 kg 82.8 kg General appearance: PRESENT: no acute distress Eye exam: PRESENT: conjunctiva pink. ABSENT: scleral icterus Mouth exam: PRESENT: moist, tongue midline Neck exam: ABSENT: JVD Respiratory exam: PRESENT: clear to auscultation gregorio. ABSENT: rales, rhonchi, wheezes Cardiovascular exam: PRESENT: RRR. ABSENT: diastolic murmur, rubs, systolic murmur GI/Abdominal exam: PRESENT: normal bowel sounds, soft. ABSENT: distended, guarding, mass, organolmegaly, rebound, tenderness Extremities exam: ABSENT: calf tenderness, clubbing, pedal edema Neurological exam: PRESENT: alert, awake, oriented to person, oriented to place , oriented to time, oriented to situation, CN II-XII grossly intact. ABSENT: motor sensory deficit Psychiatric exam: PRESENT: appropriate affect Skin exam: PRESENT: dry, intact, warm. ABSENT: cyanosis, rash Results Laboratory Results: 01/20/17 05:31 01/20/17 05:31 01/20/17 01/20/17 05:31 05:31 WBC 7.1 RBC 3.76 Hgb 10.7 L Hct 31.2 L MCV 83 MCH 28.5 MCHC 34.4 RDW 13.8 Plt Count 105 L Sodium 141.6 Potassium 3.1 L Chloride 107 Carbon Dioxide 26 Anion Gap 9 BUN 12 Creatinine 0.89 Est GFR ( Amer) > 60 Est GFR (Non-Af Amer) > 60 Glucose 102 Calcium 8.3 L Impressions: Femur X-Ray 01/18/17 13:21 IMPRESSION: SUSPECT FRACTURE OF THE RIGHT FEMORAL NECK. AREA OF RADIOLUCENCY COULD BE ARTIFACT VERSUS UNDERLYING BONE LESION. Chest X-Ray 01/18/17 14:19 IMPRESSION: NO ACUTE RADIOGRAPHIC FINDING IN THE CHEST. Pelvis X-Ray 01/19/17 07:59 IMPRESSION: SATISFACTORY POSTOPERATIVE PELVIS. Assessment & Plan - Diagnosis (1) Fracture of hip, right, closed Qualifiers: Encounter type: initial encounter Qualified Code(s): S72.001A - Fracture of unspecified part of neck of right femur, initial encounter for closed fracture Is this a current diagnosis for this admission?: Yes Plan: She is doing well postoperatively. Continue with physical therapy. (2) Coronary artery disease Is this a current diagnosis for this admission?: Yes Plan: We will restart aspirin and hold Plavix for now. (3) Hypertension Is this a current diagnosis for this admission?: Yes Plan: We will continue with the nifedipine and lisinopril. (4) Hyperlipidemia Is this a current diagnosis for this admission?: Yes Plan: Continue with Crestor. (5) Posttraumatic stress disorder Is this a current diagnosis for this admission?: Yes Plan: Continue with Lexapro and Wellbutrin. (6) Breast cancer Is this a current diagnosis for this admission?: Yes Plan: Patient had breast cancer over 15 years ago. (7) Peripheral vascular disease Is this a current diagnosis for this admission?: Yes Plan: Patient has a history of having a stent placed in her renal artery.
[2017-01-20] MEDS: LISINOPRIL 10 MG TABLET PO SCH (21:32)
[2017-01-20] MEDS: CARVEDILOL 12.5 MG TABLET PO SCH (21:32)
[2017-01-20] MEDS: NIFEDIPINE 30 MG TAB.ER.24 PO SCH (21:32)
[2017-01-21] MEDS: LANSOPRAZOLE 30 MG TAB.RAP.DR PO SCH (05:49)
[2017-01-21] MEDS: ACETAMINOPHEN 100 ML IV SCH (05:51)
[2017-01-21 07:46] LABS: HEMATOCRIT 31.2 % (36.0-47.0); HEMOGLOBIN 10.7 g/dL (12.0-15.5); HGB HCT DIFFERENCE 0.9; MEAN CORPUSCULAR HEMOGLOBIN 28.8 pg (27.0-33.4); MEAN CORPUSCULAR HGB CONC 34.3 g/dL (32.0-36.0); MEAN CORPUSCULAR VOLUME 84 fl (80-97); RED BLOOD COUNT 3.72 10^6/uL (3.72-5.28); RED CELL DISTRIBUTION WIDTH 13.9 % (11.5-14.0); WHITE BLOOD COUNT 9.2 10^3/uL (4.0-10.5)
[2017-01-21] MEDS: PRENATAL VITAMIN W DHA CAPSULE PO SCH (09:43)
[2017-01-21] MEDS: ASPIRIN 81 MG TABLET, ENT COATED PO SCH (09:43)
[2017-01-21] MEDS: SENNOSIDES/DOCUSATE 8.6-50 MG 1 EACH TABLET PO SCH ×2 (09:44→18:02)
[2017-01-21] MEDS: BUPROPION HCL 75 MG TABLET PO SCH ×2 (09:45→21:54)
[2017-01-21] MEDS: ESCITALOPRAM OXALATE 10 MG TABLET PO SCH ×2 (09:45→21:55)
--- NOTE | 2017-01-21 12:39 | PDOC PROGRESS REPORT ---
Subjective Progress Note for:: 01/21/17 Subjective:: Denies any complaints Reason For Visit: RIGHT FEMORAL NECK FRACTURE Physical Exam Vital Signs: Temp Pulse Resp BP Pulse Ox 97.2 F 76 20 129/70 H 86 L 01/21/17 11:27 01/21/17 11:27 01/21/17 11:27 01/21/17 11:27 01/21/17 11:27 Intake & Output 01/20/17 01/21/17 01/22/17 06:59 06:59 06:59 Intake Total 3075 799 Output Total 1700 1700 Balance 1375 -901 Weight 82.8 kg 83.2 kg General appearance: PRESENT: no acute distress Eye exam: PRESENT: conjunctiva pink. ABSENT: scleral icterus Mouth exam: PRESENT: moist, tongue midline Neck exam: ABSENT: JVD Respiratory exam: PRESENT: clear to auscultation gregorio. ABSENT: rales, rhonchi, wheezes Cardiovascular exam: PRESENT: RRR. ABSENT: diastolic murmur, rubs, systolic murmur GI/Abdominal exam: PRESENT: normal bowel sounds, soft. ABSENT: distended, guarding, mass, organolmegaly, rebound, tenderness Extremities exam: ABSENT: calf tenderness, clubbing, pedal edema Neurological exam: PRESENT: alert, awake, oriented to person, oriented to place , oriented to time, oriented to situation, CN II-XII grossly intact. ABSENT: motor sensory deficit Psychiatric exam: PRESENT: appropriate affect Skin exam: PRESENT: dry, intact, warm. ABSENT: cyanosis, rash Results Laboratory Results: 01/21/17 07:05 01/20/17 05:31 01/21/17 07:05 WBC 9.2 RBC 3.72 Hgb 10.7 L Hct 31.2 L MCV 84 MCH 28.8 MCHC 34.3 RDW 13.9 Plt Count 127 L Impressions: Femur X-Ray 01/18/17 13:21 IMPRESSION: SUSPECT FRACTURE OF THE RIGHT FEMORAL NECK. AREA OF RADIOLUCENCY COULD BE ARTIFACT VERSUS UNDERLYING BONE LESION. Chest X-Ray 01/18/17 14:19 IMPRESSION: NO ACUTE RADIOGRAPHIC FINDING IN THE CHEST. Pelvis X-Ray 01/19/17 07:59 IMPRESSION: SATISFACTORY POSTOPERATIVE PELVIS. Assessment & Plan - Diagnosis (1) Fracture of hip, right, closed Qualifiers: Encounter type: initial encounter Qualified Code(s): S72.001A - Fracture of unspecified part of neck of right femur, initial encounter for closed fracture Is this a current diagnosis for this admission?: Yes Plan: She is doing well postoperatively. Continue with physical therapy. (2) Coronary artery disease Is this a current diagnosis for this admission?: Yes Plan: We will continue with aspirin (3) Hypertension Is this a current diagnosis for this admission?: Yes Plan: We will continue with the nifedipine and lisinopril. (4) Hyperlipidemia Is this a current diagnosis for this admission?: Yes Plan: Continue with Crestor. (5) Posttraumatic stress disorder Is this a current diagnosis for this admission?: Yes Plan: Continue with Lexapro and Wellbutrin. (6) Breast cancer Is this a current diagnosis for this admission?: Yes Plan: Patient had breast cancer over 15 years ago. (7) Peripheral vascular disease Is this a current diagnosis for this admission?: Yes Plan: Patient has a history of having a stent placed in her renal artery. (8) Hypokalemia Is this a current diagnosis for this admission?: Yes Plan: Continue oral potassium replacement - Time Time Spent with patient: 25-34 minutes
[2017-01-21] MEDS ORDERED: ACETAMINOPHEN 325 MG TABLET PO PRN (14:00)
[2017-01-21] MEDS ORDERED: POTASSIUM CHLORIDE 10 MEQ TABLET.SA PO ONE (14:00)
[2017-01-21] MEDS: CARVEDILOL 12.5 MG TABLET PO SCH (21:51)
[2017-01-21] MEDS: ATORVASTATIN CALCIUM 20 MG TABLET PO SCH (21:54)
[2017-01-21] MEDS: POTASSIUM CHLORIDE 10 MEQ TABLET.SA PO SCH (21:54)
[2017-01-21] MEDS: NIFEDIPINE 30 MG TAB.ER.24 PO SCH (21:54)
[2017-01-21] MEDS: LISINOPRIL 10 MG TABLET PO SCH (21:55)
[2017-01-22 05:20] LABS: HEMATOCRIT 28.8 % (36.0-47.0); HGB HCT DIFFERENCE 1.2; MEAN CORPUSCULAR HEMOGLOBIN 29.1 pg (27.0-33.4); MEAN CORPUSCULAR HGB CONC 34.8 g/dL (32.0-36.0); MEAN CORPUSCULAR VOLUME 84 fl (80-97); RED BLOOD COUNT 3.44 10^6/uL (3.72-5.28); RED CELL DISTRIBUTION WIDTH 13.7 % (11.5-14.0); WHITE BLOOD COUNT 7.4 10^3/uL (4.0-10.5)
[2017-01-22 05:31] LABS: ANION GAP 10 (5-19); BLOOD UREA NITROGEN 13 mg/dL (7-20); CALCIUM 8.4 mg/dL (8.4-10.2); CARBON DIOXIDE 24 mmol/L (22-30); CHLORIDE 108 mmol/L (98-107); CREATININE RESULT 0.94 mg/dL (0.52-1.25); GLUCOSE 111 mg/dL (75-110); POTASSIUM 3.4 mmol/L (3.6-5.0); SODIUM 142.2 mmol/L (137-145)
[2017-01-22] MEDS: LANSOPRAZOLE 30 MG TAB.RAP.DR PO SCH (05:41)
--- NOTE | 2017-01-22 08:47 | PDOC PROGRESS REPORT ---
Subjective Progress Note for:: 01/22/17 Reason For Visit: RIGHT FEMORAL NECK FRACTURE postop day 3 status post hemiarthroplasty Physical Exam Vital Signs: Temp Pulse Resp BP Pulse Ox 36.4 C 73 20 158/84 H 92 01/22/17 07:51 01/22/17 07:51 01/22/17 07:51 01/22/17 07:51 01/22/17 07:51 Intake & Output 01/21/17 01/22/17 01/23/17 06:59 06:59 06:59 Intake Total 799 990 Output Total 1700 400 Balance -901 590 Weight 83.2 kg 84.4 kg General appearance: PRESENT: no acute distress Head exam: PRESENT: normocephalic Respiratory exam: PRESENT: unlabored Cardiovascular exam: PRESENT: RRR Pulses: PRESENT: +1 pedal pulses bilateral Vascular exam: PRESENT: normal capillary refill GI/Abdominal exam: PRESENT: soft Rectal exam: PRESENT: deferred Extremities exam: PRESENT: other - Right hip dressing clean dry and intact. Leg lengths are equal. Distal neurovascular examination is intact. Neurological exam: PRESENT: alert, awake, oriented to person, oriented to place , oriented to time, oriented to situation. ABSENT: motor sensory deficit Psychiatric exam: PRESENT: appropriate affect, normal mood. ABSENT: homicidal ideation, suicidal ideation Skin exam: PRESENT: dry, intact, warm. ABSENT: cyanosis, rash Results Laboratory Results: 01/22/17 05:06 01/22/17 05:06 01/22/17 01/22/17 05:06 05:06 WBC 7.4 RBC 3.44 L Hgb 10.0 L Hct 28.8 L MCV 84 MCH 29.1 MCHC 34.8 RDW 13.7 Plt Count 117 L Sodium 142.2 Potassium 3.4 L Chloride 108 H Carbon Dioxide 24 Anion Gap 10 BUN 13 Creatinine 0.94 Est GFR ( Amer) > 60 Est GFR (Non-Af Amer) 58 L Glucose 111 H Calcium 8.4 Impressions: Femur X-Ray 01/18/17 13:21 IMPRESSION: SUSPECT FRACTURE OF THE RIGHT FEMORAL NECK. AREA OF RADIOLUCENCY COULD BE ARTIFACT VERSUS UNDERLYING BONE LESION. Chest X-Ray 01/18/17 14:19 IMPRESSION: NO ACUTE RADIOGRAPHIC FINDING IN THE CHEST. Pelvis X-Ray 01/19/17 07:59 IMPRESSION: SATISFACTORY POSTOPERATIVE PELVIS. Status: Imported from PACS Assessment & Plan - Diagnosis (1) Fracture of femoral neck, right, closed Is this a current diagnosis for this admission?: Yes Plan: Patient ambulated 150 feet with physical therapy yesterday. She is quite concerned about her discharge plan. She feels that her needs her help at home and she is quite anxious to be discharged home as opposed to a senior living facility. She has made excellent progress with physical therapy in the last day. Perhaps we could consider discharging her home with home health nursing and home physical therapy tomorrow? - Time Time Spent with patient: 15-24 minutes Anticipated discharge: Home with Homehealth Within: within 24 hours
[2017-01-22] MEDS: SENNOSIDES/DOCUSATE 8.6-50 MG 1 EACH TABLET PO SCH ×2 (10:23→17:21)
[2017-01-22] MEDS: ASPIRIN 81 MG TABLET, ENT COATED PO SCH (10:23)
[2017-01-22] MEDS: POTASSIUM CHLORIDE 10 MEQ TABLET.SA PO SCH ×2 (10:24→21:09)
[2017-01-22] MEDS: PRENATAL VITAMIN W DHA CAPSULE PO SCH (10:24)
[2017-01-22] MEDS: BUPROPION HCL 75 MG TABLET PO SCH ×2 (10:24→21:09)
--- NOTE | 2017-01-22 11:33 | PDOC PROGRESS REPORT ---
Subjective Progress Note for:: 01/22/17 Subjective:: Denies any complaints Reason For Visit: RIGHT FEMORAL NECK FRACTURE Physical Exam Vital Signs: Temp Pulse Resp BP Pulse Ox 97.6 F 73 20 158/84 H 94 01/22/17 07:51 01/22/17 07:51 01/22/17 07:51 01/22/17 07:51 01/22/17 09:43 Intake & Output 01/21/17 01/22/17 01/23/17 06:59 06:59 06:59 Intake Total 799 990 Output Total 1700 400 Balance -901 590 Weight 83.2 kg 84.4 kg General appearance: PRESENT: no acute distress Eye exam: PRESENT: conjunctiva pink. ABSENT: scleral icterus Mouth exam: PRESENT: moist, tongue midline Neck exam: ABSENT: JVD Respiratory exam: PRESENT: clear to auscultation gregorio. ABSENT: rales, rhonchi, wheezes Cardiovascular exam: PRESENT: RRR. ABSENT: diastolic murmur, rubs, systolic murmur GI/Abdominal exam: PRESENT: normal bowel sounds, soft. ABSENT: distended, guarding, mass, organolmegaly, rebound, tenderness Extremities exam: ABSENT: calf tenderness, clubbing, pedal edema Neurological exam: PRESENT: alert, awake, oriented to person, oriented to place , oriented to time, oriented to situation, CN II-XII grossly intact. ABSENT: motor sensory deficit Psychiatric exam: PRESENT: appropriate affect Skin exam: PRESENT: dry, intact, warm. ABSENT: cyanosis, rash Results Laboratory Results: 01/22/17 05:06 01/22/17 05:06 01/22/17 01/22/17 05:06 05:06 WBC 7.4 RBC 3.44 L Hgb 10.0 L Hct 28.8 L MCV 84 MCH 29.1 MCHC 34.8 RDW 13.7 Plt Count 117 L Sodium 142.2 Potassium 3.4 L Chloride 108 H Carbon Dioxide 24 Anion Gap 10 BUN 13 Creatinine 0.94 Est GFR ( Amer) > 60 Est GFR (Non-Af Amer) 58 L Glucose 111 H Calcium 8.4 Impressions: Femur X-Ray 01/18/17 13:21 IMPRESSION: SUSPECT FRACTURE OF THE RIGHT FEMORAL NECK. AREA OF RADIOLUCENCY COULD BE ARTIFACT VERSUS UNDERLYING BONE LESION. Chest X-Ray 01/18/17 14:19 IMPRESSION: NO ACUTE RADIOGRAPHIC FINDING IN THE CHEST. Pelvis X-Ray 01/19/17 07:59 IMPRESSION: SATISFACTORY POSTOPERATIVE PELVIS. Assessment & Plan - Diagnosis (1) Fracture of hip, right, closed Qualifiers: Encounter type: initial encounter Qualified Code(s): S72.001A - Fracture of unspecified part of neck of right femur, initial encounter for closed fracture Is this a current diagnosis for this admission?: Yes Plan: She is doing well postoperatively. Continue with physical therapy. (2) Coronary artery disease Is this a current diagnosis for this admission?: Yes Plan: We will continue with aspirin (3) Hypertension Is this a current diagnosis for this admission?: Yes Plan: We will continue with the nifedipine and lisinopril. (4) Hyperlipidemia Is this a current diagnosis for this admission?: Yes Plan: Continue with Crestor. (5) Posttraumatic stress disorder Is this a current diagnosis for this admission?: Yes Plan: Continue with Lexapro and Wellbutrin. (6) Breast cancer Is this a current diagnosis for this admission?: Yes Plan: Patient had breast cancer over 15 years ago. (7) Peripheral vascular disease Is this a current diagnosis for this admission?: Yes Plan: Patient has a history of having a stent placed in her renal artery. (8) Hypokalemia Is this a current diagnosis for this admission?: Yes Plan: Continue oral potassium replacement - Time Time Spent with patient: 15-24 minutes - Plan Summary Plan Summary: We will plan on discharge to home with home health tomorrow.
[2017-01-22] MEDS: NIFEDIPINE 30 MG TAB.ER.24 PO SCH (21:09)
[2017-01-22] MEDS: ATORVASTATIN CALCIUM 20 MG TABLET PO SCH (21:09)
[2017-01-22] MEDS: CARVEDILOL 12.5 MG TABLET PO SCH (21:09)
[2017-01-22] MEDS: ESCITALOPRAM OXALATE 10 MG TABLET PO SCH (21:09)
[2017-01-22] MEDS: LISINOPRIL 10 MG TABLET PO SCH (21:09)
[2017-01-23] MEDS: LANSOPRAZOLE 30 MG TAB.RAP.DR PO SCH (05:32)
[2017-01-23 06:09] LABS: ABSOLUTE BASOPHILS # (AUTO) 0.1 10^3/uL (0.0-0.2); ABSOLUTE EOSINOPHILS # (AUTO) 0.4 10^3/uL (0.0-0.6); ABSOLUTE MONOCYTES (AUTO) 0.7 10^3/uL (0.1-1.4); ABSOLUTE NEUT (AUTO) 3.9 10^3/uL (1.7-8.2); BASOPHILS % (AUTO) 0.8 % (0-2); EOSINOPHILS % (AUTO) 6.4 % (0-6); HEMATOCRIT 29.2 % (36.0-47.0); HEMOGLOBIN 10.1 g/dL (12.0-15.5); HGB HCT DIFFERENCE 1.1; LYMPHOCYTES % (AUTO) 16.1 % (13-45); MEAN CORPUSCULAR HEMOGLOBIN 29.1 pg (27.0-33.4); MEAN CORPUSCULAR HGB CONC 34.6 g/dL (32.0-36.0); MEAN CORPUSCULAR VOLUME 84 fl (80-97); MONOCYTES % (AUTO) 11.3 % (3-13); RED BLOOD COUNT 3.47 10^6/uL (3.72-5.28); RED CELL DISTRIBUTION WIDTH 14.2 % (11.5-14.0); SEGMENTED NEUTROPHILS % (AUTO) 65.4 % (42-78)
[2017-01-23 06:24] LABS: ANION GAP 10 (5-19); BLOOD UREA NITROGEN 10 mg/dL (7-20); CALCIUM 8.6 mg/dL (8.4-10.2); CARBON DIOXIDE 25 mmol/L (22-30); CHLORIDE 108 mmol/L (98-107); CREATININE RESULT 0.88 mg/dL (0.52-1.25); GLUCOSE 119 mg/dL (75-110); POTASSIUM 3.7 mmol/L (3.6-5.0); SODIUM 143.4 mmol/L (137-145)
[2017-01-23] MEDS: POTASSIUM CHLORIDE 10 MEQ TABLET.SA PO SCH (10:38)
[2017-01-23] MEDS: PRENATAL VITAMIN W DHA CAPSULE PO SCH (10:38)
[2017-01-23] MEDS: SENNOSIDES/DOCUSATE 8.6-50 MG 1 EACH TABLET PO SCH (10:39)
[2017-01-23] MEDS: ASPIRIN 81 MG TABLET, ENT COATED PO SCH (10:39)
[2017-01-23] MEDS: BUPROPION HCL 75 MG TABLET PO SCH (10:39)
[2017-01-23 14:32] VITALS: BP 146/63
--- NOTE | 2017-01-23 14:41 | PDOC DISCHARGE SUMMARY ---
General - Admit/Disc Date/PCP Admission Date/Primary Care Provider: 01/18/17 15:32 EDILBERTO REED MD Discharge Date: 01/23/17 - Discharge Diagnosis (1) Fracture of hip, right, closed Is this a current diagnosis for this admission?: Yes Summary: Status post open reduction internal fixation (2) Coronary artery disease Is this a current diagnosis for this admission?: Yes (3) Hypertension Is this a current diagnosis for this admission?: Yes (4) Hyperlipidemia Is this a current diagnosis for this admission?: Yes (5) Posttraumatic stress disorder Is this a current diagnosis for this admission?: Yes (6) Breast cancer Is this a current diagnosis for this admission?: Yes (7) Peripheral vascular disease Is this a current diagnosis for this admission?: Yes (8) Hypokalemia Is this a current diagnosis for this admission?: Yes - Additional Information Resuscitation Status: Full Code Discharge Diet: Cardiac Discharge Activity: Activity As Tolerated Home Medications: Aspirin [Adult Low Dose Aspirin EC] 81 mg PO QAM 01/19/17 Bupropion HCl [Bupropion Xl] 150 mg PO QAM 01/19/17 Carvedilol [Coreg 12.5 mg Tablet] 25 mg PO DAILYP PRN 01/19/17 Escitalopram Oxalate [Lexapro 10 mg Tablet] 20 mg PO QHS 01/19/17 Ezetimibe [Zetia 10 mg Tablet] 10 mg PO QAM 01/19/17 Lisinopril [Prinivil 10 mg Tablet] 10 mg PO QHS 01/19/17 Nifedipine [Procardia XL 30 mg Tablet] 30 mg PO QHS 01/19/17 Rosuvastatin Calcium [Crestor 10 mg Tablet] 10 mg PO QAM 01/19/17 Trazodone HCl [Desyrel 50 mg Tablet] 25 mg PO HSP PRN 01/19/17 Ubidecarenone [Co Q-10] 100 mg PO QAM 01/19/17 Oxycodone HCl [Oxy-Ir 5 mg Tablet] 5 mg PO Q6HP PRN #10 tablet 01/23/17 Potassium Chloride [Klor-Con 10 Meq Tablet.sa] 20 meq PO Q12 #60 tablet.sa 01/23 History of Present Illness History of Present Illness: HENRRY HITCHCOCK is a 76 year old female who has a history of coronary disease who had a slip and fall in her house yesterday and fell and hit her right side. Patient had complaints of right hip pain at that time got herself up and walked to bed and woke up this morning with worsening pain. She was found to have a small fracture in her right femoral neck. The patient reports that she did not have any loss of consciousness. Denied having any chest pain or palpitations. She did not have any head trauma. She had no loss of consciousness. She reports that the floor was somewhat wet and slick where she slipped and fell. The patient denies any focal weakness or paresthesias. Hospital Course Hospital Course: 76-year-old female who slipped and fell and fractured her hip. Patient underwent open reduction internal fixation with good results. Patient has been ambulating with physical therapy and has needed minimal assistance. She has decided that she would like to go home instead of going to rehab. Patient will be discharged home for home health with physical therapy. Patient's other medical problems all were stable during this hospitalization except for hypokalemia which was treated with potassium replacement. Physical Exam Vital Signs: Temp Pulse Resp BP Pulse Ox 98.5 F 69 16 146/63 H 100 01/23/17 14:29 01/23/17 14:29 01/23/17 14:29 01/23/17 14:29 01/23/17 14:29 Intake & Output 01/22/17 01/23/17 01/24/17 06:59 06:59 06:59 Intake Total 990 1164 Output Total 400 500 Balance 590 664 Weight 84.4 kg 84.6 kg General appearance: PRESENT: no acute distress Eye exam: PRESENT: conjunctiva pink. ABSENT: scleral icterus Mouth exam: PRESENT: moist, tongue midline Neck exam: ABSENT: JVD Respiratory exam: PRESENT: clear to auscultation gregorio. ABSENT: rales, rhonchi, wheezes Cardiovascular exam: PRESENT: RRR. ABSENT: diastolic murmur, rubs, systolic murmur GI/Abdominal exam: PRESENT: normal bowel sounds, soft. ABSENT: distended, guarding, mass, organolmegaly, rebound, tenderness Extremities exam: ABSENT: calf tenderness, clubbing, pedal edema Neurological exam: PRESENT: alert, awake, oriented to person, oriented to place , oriented to time, oriented to situation, CN II-XII grossly intact. ABSENT: motor sensory deficit Psychiatric exam: PRESENT: appropriate affect Skin exam: PRESENT: dry, intact, warm. ABSENT: cyanosis, rash Results Laboratory Results: 01/23/17 05:27 01/23/17 05:27 01/23/17 01/23/17 05:27 05:27 WBC 6.0 RBC 3.47 L Hgb 10.1 L Hct 29.2 L MCV 84 MCH 29.1 MCHC 34.6 RDW 14.2 H Plt Count 140 L Seg Neutrophils % 65.4 Lymphocytes % 16.1 Monocytes % 11.3 Eosinophils % 6.4 H Basophils % 0.8 Absolute Neutrophils 3.9 Absolute Lymphocytes 1.0 Absolute Monocytes 0.7 Absolute Eosinophils 0.4 Absolute Basophils 0.1 Sodium 143.4 Potassium 3.7 Chloride 108 H Carbon Dioxide 25 Anion Gap 10 BUN 10 Creatinine 0.88 Est GFR ( Amer) > 60 Est GFR (Non-Af Amer) > 60 Glucose 119 H Calcium 8.6 Impressions: Femur X-Ray 01/18/17 13:21 IMPRESSION: SUSPECT FRACTURE OF THE RIGHT FEMORAL NECK. AREA OF RADIOLUCENCY COULD BE ARTIFACT VERSUS UNDERLYING BONE LESION. Chest X-Ray 01/18/17 14:19 IMPRESSION: NO ACUTE RADIOGRAPHIC FINDING IN THE CHEST. Pelvis X-Ray 01/19/17 07:59 IMPRESSION: SATISFACTORY POSTOPERATIVE PELVIS. Qualifiers PATEINT BEING DISCHARGED WITH ANY OF THE FOLLOWING DIAGNOSIS?: No Plan Discharge Plan: Patient is discharged home with home health. Will need physical therapy with home health. Follow-up with orthopedic surgery 1 week. Follow-up primary care in 2 weeks. Time Spent: Greater than 30 Minutes
== END 2017-01-23 15:45 | disposition home health service (06) | DRG 470 ==
LOC: ER 12:50 → EH 15:32 → UNDOADMIN 15:32 → 4S 19:30
PROVIDERS: ADMIT Internal Medicine; ATTEND Internal Medicine
PROC: 0SRR0JA Replacement of Right Hip Joint, Femoral Surface with Synthetic Substitute, Uncemented, Open Approach (ICD-10-PCS; principal; 2017-01-19 07:15)
DX: S72.001A Fracture of unspecified part of neck of right femur, initial encounter for closed fracture (principal); E87.6 Hypokalemia; I25.10 Atherosclerotic heart disease of native coronary artery without angina pectoris; E78.5 Hyperlipidemia, unspecified; I73.9 Peripheral vascular disease, unspecified; I10 Essential (primary) hypertension; Z85.3 Personal history of malignant neoplasm of breast; F32.9 Major depressive disorder, single episode, unspecified; F43.10 Post-traumatic stress disorder, unspecified; Z95.5 Presence of coronary angioplasty implant and graft; Z90.710 Acquired absence of both cervix and uterus; Z90.12 Acquired absence of left breast and nipple; Z79.82 Long term (current) use of aspirin; Z79.899 Other long term (current) drug therapy; Z88.8 Allergy status to other drugs, medicaments and biological substances; W19.XXXA Unspecified fall, initial encounter; Y93.89 Activity, other specified; Y92.9 Unspecified place or not applicable; Y99.9 Unspecified external cause status
CPT/HCPCS: 01210; 36415; 71010; 72170; 80048; 85025; 85027; 88305; 88311; 93005; 93010; 94799; 96374; 96376; 99285; C9290; G8978-GP; G8979-GP; G8987-GO; G8988-GO; J0131; J0330; J1170; J1885; J2250; J2310; J2704; J3010; J3370; J3480; J3490; J7030; J7060

== ENCOUNTER → 2017-03-20 | Outpatient (CLI) | payer MEDICARE ==
[2017-03-20 14:13] LABS: ANION GAP 7 (5-19); BLOOD UREA NITROGEN 18 mg/dL (7-20); CARBON DIOXIDE 28 mmol/L (22-30); CHLORIDE 106 mmol/L (98-107); CHOLESTEROL 128.24 mg/dL (0-200); GLUCOSE 100 mg/dL (75-110); POTASSIUM 4.3 mmol/L (3.6-5.0); SODIUM 140.6 mmol/L (137-145); TRIGLYCERIDES 157 mg/dL (<150)
[2017-03-20 14:25] LABS: DIRECT LDL 59 mg/dL (<100)
[2017-03-20 14:27] LABS: VLDL CHOLESTEROL 31.4 mg/dL (10-31)
== END ==
LOC: OD 12:45
PROVIDERS: ATTEND Internal Medicine Cardiovascular Disease
DX: E78.4 Other hyperlipidemia (principal); I10 Essential (primary) hypertension; Z79.899 Other long term (current) drug therapy
CPT/HCPCS: 36415; 80048; 80061

== ENCOUNTER 2018-06-05 16:40 | Emergency (ER) | payer OTHER, MEDICARE ==
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
[2018-06-05 18:05] LABS: ABSOLUTE EOSINOPHILS # (AUTO) 0.2 10^3/uL (0.0-0.6); ABSOLUTE MONOCYTES (AUTO) 0.7 10^3/uL (0.1-1.4); ABSOLUTE NEUT (AUTO) 5.7 10^3/uL (1.7-8.2); BASOPHILS % (AUTO) 0.4 % (0-2); EOSINOPHILS % (AUTO) 2.4 % (0-6); HEMATOCRIT 41.5 % (36.0-47.0); HEMOGLOBIN 14.2 g/dL (12.0-15.5); MEAN CORPUSCULAR HEMOGLOBIN 28.7 pg (27.0-33.4); MEAN CORPUSCULAR HGB CONC 34.2 g/dL (32.0-36.0); MEAN CORPUSCULAR VOLUME 84 fl (80-97); MONOCYTES % (AUTO) 9.7 % (3-13); PLATELET COUNT 164 10^3/uL (150-450); RED BLOOD COUNT 4.95 10^6/uL (3.72-5.28); RED CELL DISTRIBUTION WIDTH 14.7 % (11.5-14.0); SEGMENTED NEUTROPHILS % (AUTO) 74.5 % (42-78); TOTAL CELLS COUNTED % (AUTO) 100 %; WHITE BLOOD COUNT 7.7 10^3/uL (4.0-10.5)
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
[2018-06-05 18:22] LABS: ALANINE AMINOTRANSFERASE 33 U/L (9-52); ALBUMIN 4.2 g/dL (3.5-5.0); ALKALINE PHOSPHATASE 96 U/L (38-126); ANION GAP 7 (5-19); ASPARTATE AMINO TRANSFERASE 29 U/L (14-36); BILIRUBIN,DIRECT 0.2 mg/dL (0.0-0.4); BILIRUBIN,TOTAL 0.6 mg/dL (0.2-1.3); BLOOD UREA NITROGEN 18 mg/dL (7-20); CALCIUM 9.5 mg/dL (8.4-10.2); CARBON DIOXIDE 27 mmol/L (22-30); CHLORIDE 106 mmol/L (98-107); GLUCOSE 99 mg/dL (75-110); SODIUM 140.1 mmol/L (137-145); TOTAL PROTEIN 7.1 g/dL (6.3-8.2)
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
[2018-06-05 19:54] VITALS: BP 185/83
--- NOTE | 2018-06-06 07:46 | EKG REPORT ---
SEVERITY:- ABNORMAL ECG - SINUS RHYTHM VENTRICULAR PREMATURE COMPLEX LEFT VENTRICULAR HYPERTROPHY NONSPECIFIC ST-T CHANGES- INFERIOR LEADS : Confirmed by: Uri Small MD 06-Jun-2018 07:46:34
== END 2018-06-05 19:54 | disposition home or self-care (01) ==
LOC: ER 16:40
DX: R40.4 Transient alteration of awareness (principal); I10 Essential (primary) hypertension; M25.512 Pain in left shoulder; V87.7XXA Person injured in collision between other specified motor vehicles (traffic), initial encounter; I25.10 Atherosclerotic heart disease of native coronary artery without angina pectoris
CPT/HCPCS: 36415; 70450; 71046; 80053; 85025; 93005; 93010; 99284

== ENCOUNTER → 2018-07-19 | Outpatient (CLI) | payer MEDICARE, OTHER ==
[2018-07-19 12:29] LABS: ANION GAP 10 (5-19); BLOOD UREA NITROGEN 18 mg/dL (7-20); CALCIUM 9.6 mg/dL (8.4-10.2); CARBON DIOXIDE 27 mmol/L (22-30); CHLORIDE 105 mmol/L (98-107); CHOLESTEROL 130.46 mg/dL (0-200); GLUCOSE 121 mg/dL (75-110); POTASSIUM 3.9 mmol/L (3.6-5.0); SODIUM 141.8 mmol/L (137-145); TRIGLYCERIDES 139 mg/dL (<150)
[2018-07-19 12:40] LABS: DIRECT LDL 70 mg/dL (<100)
[2018-07-20 10:40] LABS: ALANINE AMINOTRANSFERASE 32 U/L (9-52); ALBUMIN 3.9 g/dL (3.5-5.0); ALKALINE PHOSPHATASE 94 U/L (38-126); ASPARTATE AMINO TRANSFERASE 25 U/L (14-36); BILIRUBIN,DIRECT 0.3 mg/dL (0.0-0.4); BILIRUBIN,TOTAL 0.5 mg/dL (0.2-1.3); TOTAL PROTEIN 6.3 g/dL (6.3-8.2)
== END ==
LOC: OD 11:05
PROVIDERS: ATTEND Internal Medicine Cardiovascular Disease
DX: E78.49 Other hyperlipidemia (principal); I25.10 Atherosclerotic heart disease of native coronary artery without angina pectoris; I10 Essential (primary) hypertension; Z79.899 Other long term (current) drug therapy
CPT/HCPCS: 36415; 80048; 80061; 80076

== ENCOUNTER → 2018-08-15 | Outpatient (CLI) | payer MEDICARE, OTHER ==
[2018-08-15 08:04] LABS: ALANINE AMINOTRANSFERASE 28 U/L (9-52); ALBUMIN 3.8 g/dL (3.5-5.0); ALKALINE PHOSPHATASE 90 U/L (38-126); ANION GAP 8 (5-19); ASPARTATE AMINO TRANSFERASE 27 U/L (14-36); BILIRUBIN,DIRECT 0.3 mg/dL (0.0-0.4); BILIRUBIN,TOTAL 0.5 mg/dL (0.2-1.3); BLOOD UREA NITROGEN 21 mg/dL (7-20); CALCIUM 9.4 mg/dL (8.4-10.2); CARBON DIOXIDE 25 mmol/L (22-30); CHLORIDE 107 mmol/L (98-107); CHOLESTEROL 118.09 mg/dL (0-200); GLUCOSE 117 mg/dL (75-110); POTASSIUM 4.2 mmol/L (3.6-5.0); SODIUM 140.4 mmol/L (137-145); TOTAL PROTEIN 5.9 g/dL (6.3-8.2); TRIGLYCERIDES 158 mg/dL (<150)
[2018-08-15 08:15] LABS: DIRECT LDL 64 mg/dL (<100)
[2018-08-15 08:20] LABS: VLDL CHOLESTEROL 31.6 mg/dL (10-31)
== END ==
LOC: LAB 07:11
PROVIDERS: ATTEND Internal Medicine Cardiovascular Disease
DX: E78.49 Other hyperlipidemia (principal); I10 Essential (primary) hypertension; Z79.899 Other long term (current) drug therapy
CPT/HCPCS: 36415; 80048; 80061; 80076

== ENCOUNTER → 2018-11-09 | Outpatient (CLI) | payer MEDICARE, OTHER ==
[2018-11-09 12:08] LABS: ALBUMIN 3.8 g/dL (3.5-5.0); ALKALINE PHOSPHATASE 79 U/L (38-126); ANION GAP 9 (5-19); ASPARTATE AMINO TRANSFERASE 27 U/L (14-36); BILIRUBIN,DIRECT 0.1 mg/dL (0.0-0.4); BILIRUBIN,TOTAL 0.6 mg/dL (0.2-1.3); BLOOD UREA NITROGEN 19 mg/dL (7-20); CALCIUM 9.3 mg/dL (8.4-10.2); CARBON DIOXIDE 28 mmol/L (22-30); CHLORIDE 103 mmol/L (98-107); CHOLESTEROL 113.29 mg/dL (0-200); GLUCOSE 112 mg/dL (75-110); POTASSIUM 3.7 mmol/L (3.6-5.0); TOTAL PROTEIN 6.4 g/dL (6.3-8.2); TRIGLYCERIDES 121 mg/dL (<150)
[2018-11-09 12:24] LABS: DIRECT LDL 69 mg/dL (<100)
== END ==
LOC: OD 10:42
PROVIDERS: ATTEND Physician Assistant
DX: I10 Essential (primary) hypertension (principal); E78.00 Pure hypercholesterolemia, unspecified; R73.01 Impaired fasting glucose; Z79.899 Other long term (current) drug therapy
CPT/HCPCS: 36415; 80048; 80061; 80076; 83036

== ENCOUNTER → 2019-02-08 | Outpatient (CLI) | payer MEDICARE, OTHER ==
[2019-02-08 12:12] LABS: ALBUMIN 3.8 g/dL (3.5-5.0); ALKALINE PHOSPHATASE 83 U/L (38-126); ANION GAP 10 (5-19); ASPARTATE AMINO TRANSFERASE 29 U/L (14-36); BILIRUBIN,DIRECT 0.2 mg/dL (0.0-0.4); BILIRUBIN,TOTAL 0.6 mg/dL (0.2-1.3); BLOOD UREA NITROGEN 16 mg/dL (7-20); CALCIUM 9.3 mg/dL (8.4-10.2); CARBON DIOXIDE 27 mmol/L (22-30); CHLORIDE 104 mmol/L (98-107); CHOLESTEROL 125.15 mg/dL (0-200); GLUCOSE 104 mg/dL (75-110); TOTAL PROTEIN 6.4 g/dL (6.3-8.2); TRIGLYCERIDES 169 mg/dL (<150)
[2019-02-08 12:23] LABS: DIRECT LDL 68 mg/dL (<100)
[2019-02-08 12:34] LABS: VLDL CHOLESTEROL 33.8 mg/dL (10-31)
== END ==
LOC: OD 10:53
PROVIDERS: ATTEND Physician Assistant
DX: E78.00 Pure hypercholesterolemia, unspecified (principal); I10 Essential (primary) hypertension; E87.6 Hypokalemia; Z79.899 Other long term (current) drug therapy
CPT/HCPCS: 36415; 80048; 80061; 80076

== ENCOUNTER → 2019-02-25 | Outpatient (CLI) | payer MEDICARE, OTHER ==
[2019-02-25 13:57] LABS: ANION GAP 9 (5-19); BLOOD UREA NITROGEN 17 mg/dL (7-20); CALCIUM 9.4 mg/dL (8.4-10.2); CARBON DIOXIDE 28 mmol/L (22-30); CHLORIDE 103 mmol/L (98-107); GLUCOSE 115 mg/dL (75-110); POTASSIUM 4.3 mmol/L (3.6-5.0)
== END ==
LOC: OD 12:13
PROVIDERS: ATTEND Physician Assistant
DX: I10 Essential (primary) hypertension (principal); E87.6 Hypokalemia
CPT/HCPCS: 36415; 80048

== ENCOUNTER → 2019-06-03 | Outpatient (CLI) | payer MEDICARE, OTHER ==
[2019-06-03 11:52] LABS: CHOLESTEROL 128.82 mg/dL (0-200); TRIGLYCERIDES 138 mg/dL (<150)
[2019-06-03 11:55] LABS: ALBUMIN 3.9 g/dL (3.5-5.0); ALKALINE PHOSPHATASE 77 U/L (38-126); ANION GAP 6 (5-19); ASPARTATE AMINO TRANSFERASE 30 U/L (14-36); BILIRUBIN,TOTAL 0.6 mg/dL (0.2-1.3); BLOOD UREA NITROGEN 24 mg/dL (7-20); CALCIUM 9.2 mg/dL (8.4-10.2); CARBON DIOXIDE 27 mmol/L (22-30); CHLORIDE 105 mmol/L (98-107); GLUCOSE 110 mg/dL (75-110); POTASSIUM 4.2 mmol/L (3.6-5.0); TOTAL PROTEIN 6.4 g/dL (6.3-8.2)
[2019-06-03 12:03] LABS: DIRECT LDL 63 mg/dL (<100)
== END ==
LOC: OD 10:45
PROVIDERS: ATTEND Physician Assistant
DX: E78.49 Other hyperlipidemia (principal); I10 Essential (primary) hypertension; E87.6 Hypokalemia; Z79.899 Other long term (current) drug therapy
CPT/HCPCS: 36415; 80048; 80061; 80076

== ENCOUNTER → 2019-09-16 | Outpatient (CLI) | payer MEDICARE, OTHER ==
[2019-09-16 12:14] LABS: ALBUMIN 3.8 g/dL (3.5-5.0); ALKALINE PHOSPHATASE 79 U/L (38-126); ANION GAP 5 (5-19); ASPARTATE AMINO TRANSFERASE 32 U/L (14-36); BILIRUBIN,TOTAL 0.6 mg/dL (0.2-1.3); BLOOD UREA NITROGEN 21 mg/dL (7-20); CARBON DIOXIDE 27 mmol/L (22-30); CHLORIDE 105 mmol/L (98-107); CHOLESTEROL 117.75 mg/dL (0-200); GLUCOSE 116 mg/dL (75-110); POTASSIUM 4.2 mmol/L (3.6-5.0); TOTAL PROTEIN 6.5 g/dL (6.3-8.2); TRIGLYCERIDES 151 mg/dL (<150)
[2019-09-16 12:25] LABS: DIRECT LDL 53 mg/dL (<100)
[2019-09-16 12:30] LABS: VLDL CHOLESTEROL 30.2 mg/dL (10-31)
== END ==
LOC: OD 10:30
PROVIDERS: ATTEND Physician Assistant
DX: I10 Essential (primary) hypertension (principal); E87.6 Hypokalemia; Z79.899 Other long term (current) drug therapy
CPT/HCPCS: 36415; 80048; 80061; 80076

== ENCOUNTER → 2019-12-23 | Outpatient (CLI) | payer MEDICARE, OTHER ==
[2019-12-23 12:12] LABS: ALBUMIN 3.6 g/dL (3.5-5.0); ALKALINE PHOSPHATASE 77 U/L (38-126); ANION GAP 6 (5-19); ASPARTATE AMINO TRANSFERASE 27 U/L (14-36); BILIRUBIN,TOTAL 0.6 mg/dL (0.2-1.3); BLOOD UREA NITROGEN 20 mg/dL (7-20); CALCIUM 9.3 mg/dL (8.4-10.2); CARBON DIOXIDE 28 mmol/L (22-30); CHLORIDE 105 mmol/L (98-107); CHOLESTEROL 125.62 mg/dL (0-200); GLUCOSE 113 mg/dL (75-110); POTASSIUM 4.1 mmol/L (3.6-5.0); TOTAL PROTEIN 6.1 g/dL (6.3-8.2); TRIGLYCERIDES 147 mg/dL (<150)
[2019-12-23 12:22] LABS: DIRECT LDL 57 mg/dL (<100)
== END ==
LOC: OD 11:10
PROVIDERS: ATTEND Physician Assistant
DX: E78.00 Pure hypercholesterolemia, unspecified (principal); I10 Essential (primary) hypertension; Z79.899 Other long term (current) drug therapy
CPT/HCPCS: 36415; 80048; 80061; 80076